=== PATIENT | male | born 1995 | race Hispanic/Latino ===

== ENCOUNTER 2016-11-21 12:56 | Emergency (ER) | payer SELFPAY ==
[2016-11-21] MEDS ORDERED: Ketorolac Tromethamine 60 MG/2 ML VIAL ONE (13:42)
== END 2016-11-21 14:00 | disposition home or self-care (01) ==
LOC: ERS 12:56
DX: S39.011A Strain of muscle, fascia and tendon of abdomen, initial encounter (principal); X50.0XXA Overexertion from strenuous movement or load, initial encounter; Y99.0 Civilian activity done for income or pay
CPT/HCPCS: 96372; J1885

== ENCOUNTER 2017-01-26 14:59 | Emergency (ER) | payer SELFPAY | END 2017-01-26 16:15 | disposition home or self-care (01) | LOC: ERS 14:59 | DX: L03.115 Cellulitis of right lower limb (principal) | CPT/HCPCS: 99283 ==

== ENCOUNTER 2017-01-28 11:36 | Inpatient (IN) | payer SELFPAY ==
[2017-01-28 12:35] LABS: #Eosinphils 0.2 thou/uL (0.0-0.7); #Lymphocytes 1.8 thou/uL (1.20-3.40); #Monocytes 0.7 thou/uL (0.11-0.59); %Basophils 0.4 % (0.0-1.0); %Eosinophils 2.3 % (0.0-10.0); %Lymphocytes 18.2 % (28.0-48.0); %Monocytes 7.3 % (0.0-4.0); Hematocrit 44.5 % (42.0-52.0); Mean Platelet Volume 7.4 fL (7.4-10.4); White Blood Cell (WBC) Count 9.7 thou/uL (4.8-10.8)
[2017-01-28 12:46] LABS: ALT (SGPT) 11 U/L (8-55); AST (SGOT) 18 U/L (5-34); Alkaline Phosphatase 123 U/L (Less than 750); Anion Gap 12 mmol/L (10-20); BUN (Urea Nitrogen) 15 mg/dL (8.9-20.6); Bilirubin, Total 0.7 mg/dL (0.2-1.2); Calc. Creatinine Clearance 0 mL/min (70-130); Calcium 9.9 mg/dL (7.8-10.44); Carbon Dioxide 28 mmol/L (22-29); Chloride 103 mmol/L (98-107); Estimated GFR-MDRD 88; Globulin 4.1 g/dL (2.4-3.5); Protein, Total 8.8 g/dL (6.0-8.3)
--- NOTE | 2017-01-28 13:31 | ULT ---
VENOUS DOPPLER ULTRASOUND OF THE RIGHT LOWER EXTREMITY: Date: 01/28/17 HISTORY: Right lower extremity pain, redness, edema, cellulitis. TECHNIQUE: Perez scale ultrasound with color flow and spectral Doppler imaging of the deep venous systems of the right lower extremity is performed. FINDINGS: There is good flow, compression, and augmentation noted in the right common femoral, femoral, deep fe moral, popliteal, posterior tibial, and greater saphenous veins. There is an enlarged lymph node in t he right groin, measuring 4.2 x 1.4 x 3.8 cm. IMPRESSION: No evidence of deep venous thrombosis in the right lower extremity. POS: [facility]
[2017-01-28] MEDS ORDERED: Morphine 4 MG/ML VIAL ONE (14:56)
[2017-01-28] MEDS ORDERED: Ondansetron HCl/PF 4 MG/2 ML Vial ONE (14:56)
[2017-01-28] MEDS ORDERED: Piperacillin/Tazobactam 4.5 GM in Sodium Chloride 0.9% 100 ML IVPB SCH (15:15)
--- NOTE | 2017-01-28 16:06 | PDOC.EVN ---
Attending Addendum - Attending Addendum I personally evaluated the patient and discussed the management with Dr. Cross/ Jesika. I agree with the History, Examination, Assessment and Plan documented in her H& P with any addition or exceptions noted below. Patient with couple week history of increasing redness and pain in the RLE admitted for cellulitis. He was seen in ER 2 days ago and given Keflex and Bactrim, but patient admits he did not have those medications filled. He has noted that the redness and pain have gotten worse, mostly since Friday. He has noted no drainage, fevers, chills, nausea, vomiting, similar symptoms in other body regions. He reports a 1 month history of a "knot" just inferior to his groin that is non painful. He has erythema and induration on exam of the RLE , but no evidence for fluctuance or abscess formation. U/S negative for DVT. He has nontender R sided femoral adenopathy, likely 2/2 infection. He will be admitted for IV abx, Vanc and Zosyn initially. Obtain blood cultures. Will nadine areas of erythema to ensure it is improving with therapy. Symptomatic meds as needed.
[2017-01-28] MEDS ORDERED: Calcium Carbonate 500 MG ChewTAB PO PRN (17:28)
[2017-01-28] MEDS ORDERED: Ondansetron ODT 4 MG TAB PO PRN (17:28)
[2017-01-28] MEDS ORDERED: Acetaminophen 325 MG TAB PO PRN (17:28)
[2017-01-28] MEDS ORDERED: Ondansetron HCl/PF 4 MG/2 ML Vial IVP PRN (17:28)
[2017-01-28 17:29] VITALS: BMI 23.9
[2017-01-28] MEDS: Piperacillin/Tazobactam 3.375 GM in Sodium Chloride 0.9% 100 ML IVPB SCH (20:41)
--- NOTE | 2017-01-28 22:11 | HP-2 ---
DATE OF ADMISSION: 01/28/2017 CODE STATUS: FULL. PRIMARY CARE PHYSICIAN: None. ATTENDING: Melvin Hodges MD RESIDENT: Liz Cross MD HISTORIAN: Self. CHIEF COMPLAINT: Right leg redness and swelling. HISTORY OF PRESENT ILLNESS: This is a 21-year-old male who was in the emergency room 2 days ago and was diagnosed with cellulitis of his right leg and was discharged on Bactrim and Keflex. 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 He is back f or reevaluation. He started having a lump in his upper right thigh about 1 month ago. He reports th at the lump will grow and shrink in size and it is tender especially when it is large in size. He al so started getting a rash in his right foot that he was told was acne foot. He then developed pain a nd redness in his right thigh about a week ago that spread to his right calf and guerrier, it is tender t o touch. He does not have any fevers. Denies dysuria. No other rashes or lumps anywhere else. In the ER, he was given vancomycin and Zosyn. PAST MEDICAL HISTORY: None. PAST SURGICAL HISTORY: None. ALLERGIES: No known drug allergies. MEDICATIONS: None. FAMILY HISTORY: None. SOCIA L HISTORY: Denies tobacco, alcohol, or drug use. Works as a construction manufacturing planner. REVIEW OF SYSTEMS: General: Denies fever, chills, or weight changes. Eyes: Denies vision changes. ENT: Denies nasal congestion, rhinorrhea, or sore throat. Respiratory: Denies cough or shortness of breath. Cardiovascular: Denies chest pain or edema. Gastrointestinal: Denies nausea, vomiting , diarrhea, or abdominal pain. Genitourinary: Denies dysuria or polyuria. Skin: Positive for rash and lesions. Musculoskeletal: Positive for pain and tenderness. Neurologic: Negative for weaknes s or numbness. PHYSICAL EXAMINATION: VITAL SIGNS: Blood pressure 133/75, pulse 104, respiratory rate 15, temperature 99.1, pulse ox 99% o n room air, current weight 92.57 kilograms. GENERAL: Alert, oriented x3, in no acute distress, well-nourished, appropriately interactive. EYES: Pupils equal, round, reactive to light. Extraocular muscles intact. Conjunctivae within norm al limits. ENT: Nasal mucosa and oropharynx within normal limits. NECK: Supple. No lymphadenopathy. CARDIOVASCULAR: Regular rate and rhythm. No murmurs or gallops. 2+ radial and pedal pulses. RESPIRATORY: Normal effort, no retractions, clear to auscultation bilaterally. SKIN: Warm and dry. No cyanosis. Erythematous lesion on the right medial thigh with warmth, erythe matous lesion on the calf as well as two lesions on the guerrier, right foot and scaly and ulcerative les ions that were not tender upper thigh tender, mobile lymphadenopathy. ABDOMEN: Soft, nontender to palpation. Normoactive bowel sounds. No mass or distention. EXTREMITIES: No cyanosis or edema. MUSCULOSKELETAL: Structure, tone within normal limits. 5/5 muscle strength. Full range of motion. NEUROLOGIC: No focal deficits. Sensation within normal limits. PSYCHIATRIC: Appropriate. LABORATORY DATA: WBC 9.7, hemoglobin 14.6, hematocrit 44.5, platelets 319, sodium 139, potassium 3.7 , chloride 103, CO2 of 28, BUN 15, creatinine 1.07, GFR 88, glucose 85, calcium 9.9, total protein 8. 8, albumin 4.7, alkaline phosphatase 123, total bilirubin 0.7, AST 18, ALT 11. ESR 35. CRP 2.61. V ascular ultrasound showed no evidence of DVT, there are enlarged lymph nodes in right groin. ASSESSMENT AND PLAN: This is a 21-year-old male who presents with: 1. Cellulitis. Patient never received p.o. antibiotics. We will treat with vancomycin and Zosyn fo r approximately 2 days and then likely switch to p.o. antibiotics. We will get blood cultures, no co ncern for abscess at this time. 2. Tinea pedis. We used terbinafine cream. The patient will likely need a good outpatient follow u p as this will take time to resolve. 3. Elevated erythrocyte sedimentation rate, likely secondary to cellulitis. No signs of osteo. If patient does not improve, we will consider getting x-ray. 4. Venous thromboembolism prophylaxis, sequential compression devices. DISPOSITION: Admit to medical. Symptomatic medication will be provided. History and physical exam as well as management discussed with Dr. Hodges.
[2017-01-28] MEDS: Vancomycin HCl 1 GM in Premix Bag 1 BAG IVPB SCH (23:33)
[2017-01-29] MEDS: Piperacillin/Tazobactam 3.375 GM in Sodium Chloride 0.9% 100 ML IVPB SCH ×4 (03:15→20:19)
[2017-01-29 05:51] LABS: #Eosinphils 0.3 thou/uL (0.0-0.7); #Lymphocytes 1.6 thou/uL (1.20-3.40); #Monocytes 0.7 thou/uL (0.11-0.59); #Neutrophils 6.8 thou/uL (1.40-6.50); %Basophils 0.5 % (0.0-1.0); %Eosinophils 2.8 % (0.0-10.0); %Lymphocytes 16.6 % (21.0-51.0); %Monocytes 7.9 % (0.0-10.0); Hematocrit 44.5 % (42.0-52.0); Mean Platelet Volume 7.5 fL (7.4-10.4); Red Blood Cell (RBC) Count 5.03 mill/uL (4.70-6.10); White Blood Cell (WBC) Count 9.4 thou/uL (4.8-10.8)
[2017-01-29 06:17] LABS: Anion Gap 14 mmol/L (10-20); BUN (Urea Nitrogen) 13 mg/dL (8.9-20.6); Calc. Creatinine Clearance 118 mL/min (70-130); Calcium 10.2 mg/dL (7.8-10.44); Carbon Dioxide 21 mmol/L (22-29); Chloride 108 mmol/L (98-107); Estimated GFR-MDRD Greater than 90
[2017-01-29] MEDS ORDERED: Acetaminophen/Codeine 30-300mg Tablet PO PRN (07:38)
--- NOTE | 2017-01-29 07:41 | PDOC.FM ---
- Subjective Subjective: Patient doing well this morning however notes that the pain in his right calf is not better. The redness has improved though. He is unable to describe the pain but states it is difficult to walk and pressing on the area creates pain. - Objective MAR Reviewed: Yes Vital Signs & Weight: Vital Signs (12 hours) Temp Pulse Resp BP Pulse Ox 01/28/17 23:00 98.0 F 78 20 98 01/28/17 20:00 98.0 F 78 20 122/73 98 I&O: 01/28/17 01/29/17 01/30/17 06:59 06:59 06:59 Intake Total 450 Balance 450 Result Diagrams: 01/29/17 05:04 01/29/17 05:04 <Liz Canchola - Last Filed: 01/29/17 07:40> - Objective Vital Signs & Weight: Vital Signs (12 hours) Temp Pulse Resp BP Pulse Ox 01/29/17 07:48 98.1 F 65 16 128/81 100 I&O: 01/28/17 01/29/17 01/30/17 06:59 06:59 06:59 Intake Total 450 Balance 450 Result Diagrams: 01/29/17 05:04 01/29/17 05:04 <Amado Thompson - Last Filed: 01/29/17 11:32> Phys Exam - Physical Examination Constitutional: NAD Respiratory: no wheezing, no rales, no rhonchi, clear to auscultation bilateral Cardiovascular: RRR, no significant murmur Gastrointestinal: soft, non-tender Musculoskeletal: no edema skin: light red patch on right inner thigh and calf improved from before. Neurological: non-focal, normal sensation, moves all 4 limbs Deviation from normal: areas of hypopigmentation and well demarcated raised patches along lat foot -: scabbed over lesions within patches randomly placed <Liz Canchola - Last Filed: 01/29/17 07:40> Dx/Plan (1) Cellulitis of leg, right Code(s): L03.115 - CELLULITIS OF RIGHT LOWER LIMB Status: Acute Plan: cont vanc and zosyn. trial of tylenol #3 for pain, expect improvement with cont abx. DVT r/o from ER. warmth and redness improving. (2) Tinea pedis of both feet Code(s): B35.3 - TINEA PEDIS Status: Acute Plan: cont terbinafine. Likely source of cellulitis. <Liz Canchola - Last Filed: 01/29/17 07:40> Attending Addendum - Attending Addendum I personally evaluated the patient and discussed the management with Dr. Canchola. I agree with the History, Examination, Assessment and Plan documented above with any addition or exceptions noted below. I note that his areas of tenderness and erytheam on right leg have underlying tender swollen lymph nodes. His presentation is consistent with tenia pedis, with acute lymphadenitis and cellulitis. he is beginning to ambulate but has significant tenderness. Add oral antifungal. Discharge expected tomorrow. <Amado Thompson - Last Filed: 01/29/17 11:32>
[2017-01-29] MEDS ORDERED: FLU VACC QS2017-18 36 mo. & older 0.5 ML SYRINGE IM ONE (09:00)
[2017-01-29] MEDS: Vancomycin HCl 1 GM in Premix Bag 1 BAG IVPB SCH ×3 (09:34→23:16)
[2017-01-29] MEDS ORDERED: Morphine 4 MG/ML VIAL SLOW IVP SCH (15:30)
[2017-01-29 16:12] LABS: Vancomycin, Trough 18.2 ug/mL
[2017-01-29] MEDS: HYDROcodone/Acetaminophen 5/325 mg Tablet PO PRN (20:24)
[2017-01-30] MEDS: Piperacillin/Tazobactam 3.375 GM in Sodium Chloride 0.9% 100 ML IVPB SCH ×4 (02:28→21:37)
[2017-01-30 05:34] LABS: #Eosinphils 0.3 thou/uL (0.0-0.7); #Lymphocytes 1.5 thou/uL (1.20-3.40); #Monocytes 0.4 thou/uL (0.11-0.59); #Neutrophils 4.3 thou/uL (1.40-6.50); %Basophils 0.1 % (0.0-1.0); %Lymphocytes 23.1 % (21.0-51.0); %Monocytes 6.6 % (0.0-10.0); Hematocrit 41.9 % (42.0-52.0); Mean Platelet Volume 7.3 fL (7.4-10.4); Red Blood Cell (RBC) Count 4.76 mill/uL (4.70-6.10); White Blood Cell (WBC) Count 6.4 thou/uL (4.8-10.8)
[2017-01-30 06:03] LABS: Anion Gap 13 mmol/L (10-20); BUN (Urea Nitrogen) 11 mg/dL (8.9-20.6); Calc. Creatinine Clearance 101 mL/min (70-130); Calcium 9.7 mg/dL (7.8-10.44); Carbon Dioxide 26 mmol/L (22-29); Chloride 105 mmol/L (98-107); Estimated GFR-MDRD 82
--- NOTE | 2017-01-30 09:07 | PDOC.FM ---
- Subjective Subjective: Patient unable to bear weight on right leg due to pain. States yesterday he fell 2/2 pain in calf and felt a pop in his calf. Reports some improvement with pain meds but still unable to bear weight. Feels significant pain if pressure applied to calf. No other complaints. - Objective MAR Reviewed: Yes Vital Signs & Weight: Weight Admit Weight 69.309 kg Weight 69.309 kg I&O: 01/29/17 01/30/17 01/31/17 06:59 06:59 06:59 Intake Total 450 400 Balance 450 400 Result Diagrams: 01/30/17 05:00 01/30/17 05:00 <Liz Canchola - Last Filed: 01/30/17 09:06> - Objective Vital Signs & Weight: Vital Signs (12 hours) Temp Pulse Resp BP Pulse Ox 01/30/17 08:00 98.4 F 79 18 117/68 97 Weight Admit Weight 69.309 kg Weight 69.309 kg I&O: 01/29/17 01/30/17 01/31/17 06:59 06:59 06:59 Intake Total 450 400 Balance 450 400 Result Diagrams: 01/30/17 05:00 01/30/17 05:00 <Tess Stuart - Last Filed: 01/30/17 19:14> Phys Exam - Physical Examination Constitutional: NAD Respiratory: no wheezing, no rales, no rhonchi, clear to auscultation bilateral Cardiovascular: RRR, no significant murmur Gastrointestinal: soft, non-tender suspected tenderness of tendon upon dorsiflexion of right foot multiple tender lymph node along interior of right leg. Deviation from normal: persistent fungal rash on lucretia feet. improvement of erythematous patches <Liz Canchola - Last Filed: 01/30/17 09:06> Dx/Plan (1) Cellulitis of leg, right Code(s): L03.115 - CELLULITIS OF RIGHT LOWER LIMB Status: Acute Plan: Day 3 of vanc/zosyn with improvement of cellulitis however pain unchanged and possibly worse. Will order MRI of RLE for suspected tendon involvement. (2) Tinea pedis of both feet Code(s): B35.3 - TINEA PEDIS Status: Chronic Plan: cont oral and cream terbinafine. (3) Lymphadenitis, acute Code(s): L04.9 - ACUTE LYMPHADENITIS, UNSPECIFIED Status: Acute <Liz Canchola - Last Filed: 01/30/17 09:06> Attending Addendum - Attending Addendum I personally evaluated the patient and discussed the management with Dr. Canchola at 945am. I agree with the History, Examination, Assessment and Plan documented above with any addition or exceptions noted below. R lower leg cellulitis and lymphadenitis- on vanc and zosyn. Persistent pain so MRI ordered showing subq edema without tendon/muscle/fascial involvement. Ambulation ad lang with goal of home tomorrow on po antibiotics. <Tess Stuart - Last Filed: 01/30/17 19:14>
[2017-01-30] MEDS: Vancomycin HCl 1 GM in Premix Bag 1 BAG IVPB SCH ×3 (10:30→23:38)
--- NOTE | 2017-01-30 13:20 | MRI ---
MRI OF RIGHT TIBIA AND FIBULA PERFORMED WITHOUT CONTRAST ENHANCEMENT: Date; 01/30/17 HISTORY: Pain, redness, and edema. Patient felt a pop in calf after falling due to pain yesterday. FINDINGS: Motion artifact does degrade detail on this examination. In the area of patient's pain, there is a marker placed. There are edema changes which are confined t o the superficial subcutaneous fat along the more posterior and more medial side of the calf. I do no t see any evidence of any underlying muscle strain. No evidence for any type of compartment syndrome. The marrow signal change in the visualized portions of the tibia and fibula are noted. IMPRESSION: Superficial edema changes as discussed above. POS: [facility]
[2017-01-30] MEDS: HYDROcodone/Acetaminophen 5/325 mg Tablet PO PRN ×2 (17:36→22:21)
[2017-01-31] MEDS: Piperacillin/Tazobactam 3.375 GM in Sodium Chloride 0.9% 100 ML IVPB SCH ×3 (03:29→15:07)
[2017-01-31 05:48] LABS: #Eosinphils 0.3 thou/uL (0.0-0.7); #Lymphocytes 1.4 thou/uL (1.20-3.40); #Monocytes 0.5 thou/uL (0.11-0.59); #Neutrophils 3.5 thou/uL (1.40-6.50); %Basophils 0.7 % (0.0-1.0); %Eosinophils 5.8 % (0.0-10.0); %Lymphocytes 24.6 % (21.0-51.0); %Monocytes 8.3 % (0.0-10.0); Hematocrit 39.5 % (42.0-52.0); Mean Platelet Volume 7.2 fL (7.4-10.4); Red Blood Cell (RBC) Count 4.51 mill/uL (4.70-6.10); White Blood Cell (WBC) Count 5.7 thou/uL (4.8-10.8)
[2017-01-31 06:21] LABS: Anion Gap 11 mmol/L (10-20); BUN (Urea Nitrogen) 10 mg/dL (8.9-20.6); Calc. Creatinine Clearance 110 mL/min (70-130); Calcium 9.8 mg/dL (7.8-10.44); Carbon Dioxide 25 mmol/L (22-29); Chloride 106 mmol/L (98-107); Estimated GFR-MDRD 90
[2017-01-31] MEDS: Vancomycin HCl 1 GM in Premix Bag 1 BAG IVPB SCH ×2 (08:04→16:20)
--- NOTE | 2017-01-31 09:39 | PDOC.FM ---
- Subjective Subjective: Patient still reports pain, reports another pop in his leg. Can bear some weight with pain. Patient reports no other symptoms. - Objective MAR Reviewed: Yes Vital Signs & Weight: Vital Signs (12 hours) Temp Pulse Resp BP Pulse Ox 01/31/17 08:00 98.2 F 58 L 20 129/80 97 Weight Admit Weight 69.309 kg Weight 69.309 kg I&O: 01/30/17 01/31/17 02/01/17 06:59 06:59 06:59 Intake Total 400 450 Balance 400 450 Result Diagrams: 01/31/17 05:23 01/31/17 05:23 Radiology: MRI- no acute process in RLE <Liz Canchola - Last Filed: 01/31/17 09:37> - Objective Vital Signs & Weight: Vital Signs (12 hours) Temp Pulse Resp BP Pulse Ox 01/31/17 16:08 97.6 F 77 18 104/55 L 98 01/31/17 08:00 98.2 F 58 L 20 129/80 97 Weight Admit Weight 69.309 kg Weight 69.309 kg I&O: 01/30/17 01/31/17 02/01/17 06:59 06:59 06:59 Intake Total 400 450 Balance 400 450 Result Diagrams: 01/31/17 05:23 01/31/17 05:23 <Tess Stuart - Last Filed: 01/31/17 19:26> Phys Exam - Physical Examination Constitutional: NAD Respiratory: no wheezing, no rales, no rhonchi, clear to auscultation bilateral Cardiovascular: RRR, no significant murmur Gastrointestinal: soft, non-tender Musculoskeletal: no edema tender along likely cord of lymph nodes vs tendon in calf. tender lymph in inner thigh Psychiatric: normal affect Deviation from normal: erythema improved. <Liz Canchola - Last Filed: 01/31/17 09:37> Dx/Plan (1) Cellulitis of leg, right Code(s): L03.115 - CELLULITIS OF RIGHT LOWER LIMB Status: Acute Plan: No acute process except inflammation on MRI. Recommend NSAIDs for pain. Patient to be transitioned to oral bactrim as this is cheapest option since he has no insurance. (2) Tinea pedis of both feet Code(s): B35.3 - TINEA PEDIS Status: Chronic Plan: cont oral and cream terbinafine. Script to be sent. (3) Lymphadenitis, acute Code(s): L04.9 - ACUTE LYMPHADENITIS, UNSPECIFIED Status: Acute (4) Leg pain, right Code(s): M79.604 - PAIN IN RIGHT LEG Status: Acute Plan: suspect this is 2/2 to inflammation. Stressed importance of follow up next week. Pt to be evaluated by PT and likely home later today. MRI revealed no concerns for abscess or tenosynivitis. <Liz Canchola - Last Filed: 01/31/17 09:37> Attending Addendum - Attending Addendum I personally evaluated the patient and discussed the management with Dr. Canchola at 0840 I agree with the History, Examination, Assessment and Plan documented above with any addition or exceptions noted below. Cellulitis and lymphadenits- stable for d/c home on Bactrim with close o/p follow-up <Tess Stuart - Last Filed: 01/31/17 19:26>
[2017-01-31 16:12] VITALS: BP 104/55; TEMP 97.6
== END 2017-01-31 17:05 | disposition home or self-care (01) | DRG 603 ==
LOC: ERS 11:36 → T4-B 17:08
PROVIDERS: ADMIT Student in an Organized Health Care Education/Training Program; ATTEND Student in an Organized Health Care Education/Training Program
DX: L03.115 Cellulitis of right lower limb (principal); B35.3 Tinea pedis; L04.9 Acute lymphadenitis, unspecified
CPT/HCPCS: 36415; 80048; 80053; 80202; 85025; 85652; 86140; 87040; 90471; 90682; 96365; 96367; 96375; A4216; G0008; G8978-GP-CI; G8979-GP-CI; G8980-GP-CI; J2270; J2405; J2543; J3370; J7050; Q2036

== ENCOUNTER 2018-04-23 03:47 | Emergency (ER) | payer SELFPAY ==
[2018-04-23] MEDS ORDERED: Ondansetron ODT 4 MG TAB ONE (03:59)
[2018-04-23 04:33] LABS: #Lymphocytes 1.2 thou/uL (1.20-3.40); #Monocytes 0.4 thou/uL (0.11-0.59); #Neutrophils 9.9 thou/uL (1.40-6.50); %Basophils 0.3 % (0.0-1.0); %Eosinophils 0.2 % (0.0-10.0); %Lymphocytes 10.3 % (21.0-51.0); %Monocytes 3.3 % (0.0-10.0); %Neutrophils 85.9 % (42.0-75.0); Hemoglobin 15.8 g/dL (14.0-18.0); Mean Corpuscular HGB CONC 33.8 g/dL (32.0-36.0); Mean Corpuscular Hemoglobin 29.2 pg (27.0-31.0); Mean Corpuscular Volume 86.2 fL (78.0-98.0); Mean Platelet Volume 7.8 fL (7.4-10.4); Platelet Count 263 thou/uL (130-400); RBC Distribution Width 11.5 % (11.5-14.5); Red Blood Cell (RBC) Count 5.43 mill/uL (4.70-6.10); White Blood Cell (WBC) Count 11.5 thou/uL (4.8-10.8)
[2018-04-23] MEDS ORDERED: Dicyclomine 20 MG TAB ONE (04:38)
[2018-04-23] MEDS ORDERED: Metoclopramide HCl 10 MG/2 ML VIAL ONE (04:38)
[2018-04-23] MEDS ORDERED: diphenhydrAMINE 50 MG/ML VIAL ONE (04:38)
[2018-04-23] MEDS ORDERED: Pantoprazole 40 MG VIAL ONE (04:38)
[2018-04-23 04:51] LABS: ALT (SGPT) 22 U/L (8-55); AST (SGOT) 22 U/L (5-34); Albumin 5.3 g/dL (3.5-5.0); Alkaline Phosphatase 111 U/L (40-150); Anion Gap 17 mmol/L (10-20); BUN (Urea Nitrogen) 11 mg/dL (8.9-20.6); Bilirubin, Total 0.7 mg/dL (0.2-1.2); Calc. Creatinine Clearance 0 mL/min (70-130); Calcium 10.5 mg/dL (7.8-10.44); Carbon Dioxide 24 mmol/L (22-29); Chloride 103 mmol/L (98-107); Estimated GFR-MDRD Greater than 90; Globulin 3.2 g/dL (2.4-3.5); Glucose 98 mg/dL (70-105); Potassium 3.3 mmol/L (3.5-5.1); Protein, Total 8.5 g/dL (6.0-8.3); Sodium 141 mmol/L (136-145)
[2018-04-23 05:24] LABS: Amphetamine Not Detected (NotDetected); Barbiturates Screen Not Detected (NotDetected); Benzodiazepine Screen Not Detected (NotDetected); Cocaine Metabolite Screen Not Detected (NotDetected); Medtox Control Line Valid? VALID (VALID); Medtox Reader # READER 1; Methadone Not Detected (NotDetected); Methamphetamine Not Detected (NotDetected); Opiate Screen Not Detected (NotDetected); Oxycodone Screen Not Detected (NotDetected); Phencyclidine (PCP) Not Detected (NotDetected); THC/Cannabinoid Screen Detected (NotDetected); Tricyclic Screen Not Detected (NotDetected)
[2018-04-23 05:44] LABS: Acetaminophen Less than 6.0 mcg/mL (10.0-30.0); Alcohol Less than 10 mg/dL (Less than 10); Salicylate Less than 8.0 mg/dL (15.0-30.0)
[2018-04-23] MEDS ORDERED: Lidocaine Viscous Sol 2% 15 ml UD Cup ONE (05:58)
[2018-04-23] MEDS ORDERED: Mag-Al 1200 mg/1200 mg/30 ML UDCUP ONE (05:58)
--- NOTE | 2018-04-25 17:06 | EKG ---
Test Reason : Blood Pressure : / mmHG Vent. Rate : 078 BPM Atrial Rate : 078 BPM P-R Int : 114 ms QRS Dur : 090 ms QT Int : 370 ms P-R-T Axes : 003 076 030 degrees QTc Int : 421 ms Normal sinus rhythm Normal ECG Confirmed by ANKIT RAJAN ([id number]), fashion editor BONITA MONTOYA ([id number]) on 04/25/2018 5:06:29 PM Referred By: Confirmed By:ANKIT RAJAN
== END 2018-04-23 06:39 | disposition home or self-care (01) ==
LOC: ERS 03:47
DX: R11.2 Nausea with vomiting, unspecified (principal); R10.9 Unspecified abdominal pain
CPT/HCPCS: 80053; 80306; 80307; 82550; 85025; 93005; 96361; 96374; 96375; C9113; J1200; J2765; Q0162

== ENCOUNTER 2019-01-28 12:22 | Emergency (ER) | payer SELFPAY ==
[2019-01-28] MEDS ORDERED: Ketorolac Tromethamine 30 MG/ML VIAL ONE (13:09)
--- NOTE | 2019-01-28 13:23 | RAD ---
XR Knee Rt 4 View STANDARD HISTORY: Right knee pain FINDINGS: No fracture or dislocation is identified. No bony destruction or periosteal reaction is seen. No join t effusion is identified.
--- NOTE | 2019-01-28 13:39 | ULT ---
ULTRASOUND DOPPLER DUPLEX VENOUS RIGHT LOWER EXTREMITY: DATE: 01/28/2019 HISTORY: 23-year-old male with right lower extremity pain TECHNIQUE: Grayscale, color-flow, and spectral analysis, of major veins of right lower extremity. FINDINGS: There is demonstration of blood flow with normal compressibility, of the right common femoral, profun da femoral, greater saphenous, femoral, popliteal, and posterior tibial, veins. IMPRESSION: Negative. No deep venous thrombosis of right lower extremity.
== END 2019-01-28 14:15 | disposition home or self-care (01) ==
LOC: ERS 12:22
DX: L03.115 Cellulitis of right lower limb (principal)
CPT/HCPCS: 96372; J1885

== ENCOUNTER 2019-02-28 04:16 | Inpatient (IN) | payer SELFPAY ==
[2019-02-28] MEDS ORDERED: Morphine 4 MG/ML VIAL ONE (04:50)
[2019-02-28] MEDS ORDERED: Piperacillin/Tazobactam 4.5 GM VIAL ONE (04:51)
[2019-02-28] MEDS ORDERED: Ondansetron PF 4 MG/2 ML Vial ONE (04:51)
[2019-02-28 04:58] LABS: #Eosinphils 0.1 thou/uL (0.0-0.7); #Lymphocytes 0.8 thou/uL (1.20-3.40); #Monocytes 0.8 thou/uL (0.11-0.59); #Neutrophils 9.3 thou/uL (1.40-6.50); %Basophils 0.2 % (0.0-1.0); %Eosinophils 0.6 % (0.0-10.0); %Lymphocytes 6.9 % (21.0-51.0); %Monocytes 7.5 % (0.0-10.0); %Neutrophils 84.8 % (42.0-75.0); Hemoglobin 14.6 g/dL (14.0-18.0); Mean Corpuscular HGB CONC 33.2 g/dL (32.0-36.0); Mean Corpuscular Hemoglobin 28.2 pg (27.0-31.0); Mean Corpuscular Volume 85.2 fL (78.0-98.0); Mean Platelet Volume 8.1 fL (7.4-10.4); Platelet Count 223 thou/uL (130-400); RBC Distribution Width 11.7 % (11.5-14.5); Red Blood Cell (RBC) Count 5.19 mill/uL (4.70-6.10)
[2019-02-28] MEDS ORDERED: Ketorolac Tromethamine 30 MG/ML VIAL ONE (05:02)
[2019-02-28 05:05] LABS: ALT (SGPT) 15 U/L (8-55); AST (SGOT) 27 U/L (5-34); Albumin 5.2 g/dL (3.5-5.0); Alkaline Phosphatase 130 U/L (40-110); Anion Gap 20 mmol/L (10-20); BUN (Urea Nitrogen) 14 mg/dL (8.9-20.6); Bilirubin, Total 0.6 mg/dL (0.2-1.2); Calc. Creatinine Clearance 0 mL/min (70-130); Carbon Dioxide 20 mmol/L (22-29); Chloride 103 mmol/L (98-107); Estimated GFR-MDRD 76; Globulin 3.3 g/dL (2.4-3.5); Glucose 97 mg/dL (70-105); Potassium 3.5 mmol/L (3.5-5.1); Protein, Total 8.5 g/dL (6.0-8.3); Sodium 139 mmol/L (136-145)
[2019-02-28] MEDS ORDERED: Sodium Chloride 0.9% 1,000 ML IV SCH (06:40)
[2019-02-28] MEDS ORDERED: Acetaminophen 325 MG TAB PO PRN (06:40)
[2019-02-28 07:06] VITALS: BMI 25.0
[2019-02-28] MEDS ORDERED: Loratadine 10 MG TAB PO PRN (07:59)
[2019-02-28] MEDS ORDERED: Diabetic Tussin 200 MG/10 ML UDCUP PO PRN (07:59)
[2019-02-28] MEDS ORDERED: Sodium Chloride 0.65% Nasal 44 ML BOT EA NARE PRN (07:59)
[2019-02-28] MEDS ORDERED: Bisacodyl 10 MG SUPP PR PRN (07:59)
[2019-02-28] MEDS ORDERED: Calcium Carbonate 500 MG ChewTAB PO PRN (07:59)
[2019-02-28] MEDS ORDERED: Zolpidem Tartrate 5 MG TAB PO PRN (07:59)
[2019-02-28] MEDS ORDERED: Loperamide HCl 2 MG CAP PO PRN (07:59)
[2019-02-28] MEDS ORDERED: hydrALAZINE 20 MG/ML VIAL SLOW IVP PRN (07:59)
[2019-02-28] MEDS ORDERED: Ondansetron PF 4 MG/2 ML Vial IVP PRN ×2 (07:59→11:00)
[2019-02-28] MEDS ORDERED: Cepastat Lozenges 1 LOZ PO PRN (07:59)
[2019-02-28] MEDS ORDERED: Senokot S 8.6-50 MG TAB PO PRN (07:59)
[2019-02-28] MEDS: Acetaminophen 325 MG TAB PO PRN ×3 (08:06→18:29)
[2019-02-28] MEDS: Sodium Chloride 0.9% 1,000 ML IV SCH ×3 (08:07→20:07)
--- NOTE | 2019-02-28 08:42 | CT ---
PRELIMINARY REPORT/[facility]/AFTER HOURS PROCEDURE CT ABDOMEN AND PELVIS WITH INTRAVENOUS CONTRAST: CLINICAL HISTORY: M24 presents to the ED with c/o fever, chills, RLQ pain, nausea and vomiting onset suddenly at 0000. Pt reports an area of erythema to right guerrier. Pt states he has experienced similar symptoms in the past with cellulitis. TECHNIQUE: Axial computed tomography images of the abdomen and pelvis with intravenous contrast. CONTRAST: With Isovue-[id number] mL. COMPARISON: None provided. FINDINGS: LUNG BASES: No basilar airspace consolidation or pleural effusion. LIVER: Unremarkable. GALLBLADDER AND BILE DUCTS: Unremarkable. No calcified stone. No ductal dilation. PANCREAS: Unremarkable. SPLEEN: Unremarkable. ADRENAL GLANDS: Unremarkable. KIDNEYS, URETERS, AND BLADDER: Unremarkable. No hydronephrosis or nephrolithiasis. No ureteral or yojana dder calculi. STOMACH AND BOWEL: No obstruction. No wall thickening. No CT evidence of colitis or acute diverticuli tis. APPENDIX: No CT evidence for appendicitis. PERITONEUM: No free fluid. No free air. LYMPH NODES: No lymphadenopathy. REPRODUCTIVE: Unremarkable as visualized. VASCULATURE: No aortic aneurysm. BONES: No fracture or suspicious osseous abnormality. ABDOMINAL WALL AND SOFT TISSUES: Unremarkable. IMPRESSION: No acute intra-abdominal or pelvic abnormality. ELECTRONICALLY SIGNED BY: Romario Whitaker M.D. Feb 28, 2019 5:28:00 AM FAMILY LAW ATTORNEY This report is intended for review by the ordering physician only, in accordance of law. If you recei ve this report in error, please call [facility] at [phone]. FINAL REPORT CT ABDOMEN AND PELVIS WITH IV CONTRAST: PROVIDED CLINICAL HISTORY: Abdominal pain. COMPARISON: None. FINDINGS/IMPRESSION: I agree with the preliminary interpretation given by [facility]. CODE QA Transcribed Date/Time: 02/28/2019 9:12 AM
--- NOTE | 2019-02-28 08:42 | RAD ---
EXAM: Portable chest PROVIDED CLINICAL HISTORY: Fever COMPARISON: 05/14/2015 FINDINGS: Cardiac and mediastinal silhouette is within normal limits. No focal consolidation, pleural fluid or pneumothorax evident. IMPRESSION: No evidence for an acute cardiopulmonary process.
[2019-02-28] MEDS: Ibuprofen 200 MG TAB PO PRN ×3 (09:48→18:29)
[2019-02-28] MEDS: Enoxaparin Sodium 40 MG/0.4 ML SYRINGE SC SCH (09:49)
[2019-02-28] MEDS: Famotidine 20 MG TAB PO SCH ×2 (09:49→20:07)
[2019-02-28] MEDS: cefTRIAXone\\ROCEPHIN 2 GM in Sodium Chloride 0.9% 100 ML IVPB SCH (10:02)
[2019-02-28] MEDS ORDERED: Ondansetron ODT 4 MG TAB SL PRN (11:00)
[2019-02-28] MEDS ORDERED: FLU VACC QS2019-20(6MOS UP)/PF 60 MCG/0.5 ML SYRINGE IM ONE (12:00)
[2019-02-28] MEDS: Vancomycin HCl 1 GM in Premix Bag 1 BAG IVPB SCH ×2 (12:53→20:07)
--- NOTE | 2019-02-28 13:46 | HP ---
PRIMARY CARE PHYSICIAN: [facility]. REASON FOR ADMISSION: Sepsis, cellulitis of right lower extremity, and abdominal pain. HISTORY OF PRESENT ILLNESS: A 24-year-old male with no significant past medical history, who initially came to emergency room with abdominal pain. The patient reports that last night after returning from [place] at his friend's home, he was started having nausea, vomiting, and crampy abdominal pain and he did not have any diarrhea. The patient was feeling chills and fever and subsequently, he was brought to emergency room for evaluation. The patient was also complaining of right lower extremity pain, swelling, and erythema for last couple of days. In the emergency room, as the patient was complaining of nausea, vomiting, and abdominal pain that is why CT abdomen and pelvis was done, which was unremarkable. The patient was found with fever with 100.7 and he was tachycardic as well as tachypneic and he was having significant chills and the patient was found with right lower extremity cellulitis. The patient reports that he has similar cellulitis several times in the past over right lower extremity. He denies any trauma. He denies any sick exposure. He denies any flu-like illness. He denies any melena or hematochezia or any vomiting of blood. He denies any unusual drug ingestion. REVIEW OF SYSTEMS: CONSTITUTIONAL: Negative for weight loss or gain, ability to conduct usual activities. SKIN: Negative for rash, itching. EYES: Negative for double vision, pain. ENT/MOUTH: Negative for nose bleeding, neck stiffness, pain, tenderness. CARDIOVASCULAR: Negative for palpitations, dyspnea on exertion, orthopnea. RESPIRATORY: Negative for shortness of breath, wheezing, cough, hemoptysis, fever or night sweats. GASTROINTESTINAL: Negative for poor appetite, abdominal pain, heartburn, nausea, vomiting, constipation, or diarrhea. GENITOURINARY: Negative for urgency, frequency, dysuria, nocturia. MUSCULOSKELETAL: Negative for pain, swelling. NEUROLOGIC/PSYCHIATRIC: Negative for anxiety, depression. ALLERGY/IMMUNOLOGIC: Negative for skin rash, bleeding tendency. Please see my HPI for pertinent positives and negatives. All other review of systems reviewed and negative except as mentioned in HPI. PAST MEDICAL HISTORY: Reviewed and negative. PAST SURGICAL HISTORY: Reviewed and negative. ALLERGIES: NO KNOWN DRUG ALLERGIES. CURRENT HOME MEDICATIONS: The patient is not taking any prescribed or non-prescribed medication. FAMILY HISTORY: No strong family history of premature coronary artery disease, stroke, or cancer. SOCIAL HISTORY: The patient drinks alcohol only occasionally. No smoking. No other illicit drug abuse. EMERGENCY ROOM COURSE: The patient has received vancomycin, Zosyn, morphine, Zofran, IV fluid, and Toradol. PHYSICAL EXAMINATION: VITAL SIGNS: On arrival; blood pressure 151/65, pulse 111, respiratory rate 36, temperature 100.7, and saturation 97% on room air. Weight 74 kg. GENERAL: The patient is currently alert and awake, no obvious acute distress. HEENT: Head, normocephalic and atraumatic. Eyes, pupils round and reactive to light. Extraocular muscle intact. ENT, oropharynx within normal limits. Moist mucous membranes. No oral lesion. No pharyngeal erythema. No exudate. NECK: Supple. No JVD. No meningeal signs of irritation. LUNGS: Clear to auscultation without any rhonchi or rales. CARDIAC: S1 and S2. Regular. Tachycardia. No murmur. No gallop. No rub. ABDOMEN: Soft, bowel sounds present, nontender, and nondistended. No organomegaly. No mass. EXTREMITIES: Right lower extremity warmth, erythema, and tenderness noted. Right groin has reactive lymph node tenderness noted. Left lower extremity within normal limit. NEUROLOGIC: Nonfocal examination. No meningeal signs of irritation. HEMATOLOGICAL SYSTEM: No other lymphadenopathy. SKIN: No skin rash other than cellulitis. SIGNIFICANT LABORATORY DATA: EKG showing sinus tachycardia. CT abdomen and pelvis, negative for any acute intraabdominal process. CBC; WBC 11.0, hemoglobin 14.6, and platelet 223. BMP; sodium 139, potassium 3.5, chloride 103, carbon dioxide 20, BUN 14, creatinine 1.19, glucose 97, and calcium 10.0. LFT; AST is 27, ALT 15, alkaline phosphatase 130, and albumin 5.2. ASSESSMENT: 1. Sepsis due to right lower extremity cellulitis. 2. Nausea, vomiting, abdominal pain, likely gastroenteritis, improving. PLAN: The patient will be admitted to the medical floor, the patient will be given empiric antibiotic therapy with vancomycin and Rocephin, follow up on culture result, advised to keep the right lower extremity elevated, continue IV fluid, DVT prophylaxis with Lovenox 40 mg subcu daily, GI prophylaxis with Pepcid 20 mg p.o. b.i.d., and symptomatic treatment will be given. Plan of care discussed with the patient and his father at bedside, we are expecting his stay in hospital more than 2 midnights. Plan of care discussed with them in detail. Job ID: [id number]
[2019-02-28] MEDS ORDERED: Iopamidol-370 76% 500 ML 1 ML ONE (16:03)
[2019-03-01 05:16] LABS: #Lymphocytes 0.6 thou/uL (1.20-3.40); #Monocytes 0.7 thou/uL (0.11-0.59); #Neutrophils 3.7 thou/uL (1.40-6.50); %Eosinophils 0.2 % (0.0-10.0); %Lymphocytes 12.5 % (21.0-51.0); %Monocytes 13.5 % (0.0-10.0); %Neutrophils 73.7 % (42.0-75.0); Hemoglobin 13.5 g/dL (14.0-18.0); Mean Corpuscular HGB CONC 34.6 g/dL (32.0-36.0); Mean Corpuscular Hemoglobin 30.4 pg (27.0-31.0); Mean Corpuscular Volume 87.7 fL (78.0-98.0); Mean Platelet Volume 8.3 fL (7.4-10.4); Platelet Count 143 thou/uL (130-400); RBC Distribution Width 11.8 % (11.5-14.5); Red Blood Cell (RBC) Count 4.44 mill/uL (4.70-6.10)
[2019-03-01 05:44] LABS: Anion Gap 13 mmol/L (10-20); BUN (Urea Nitrogen) 8 mg/dL (8.9-20.6); Calc. Creatinine Clearance 147 mL/min (70-130); Calcium 8.5 mg/dL (7.8-10.44); Carbon Dioxide 20 mmol/L (22-29); Chloride 110 mmol/L (98-107); Estimated GFR-MDRD Greater than 90; Glucose 86 mg/dL (70-105); Potassium 3.5 mmol/L (3.5-5.1); Sodium 139 mmol/L (136-145)
[2019-03-01] MEDS: Vancomycin HCl 1 GM in Premix Bag 1 BAG IVPB SCH (05:56)
[2019-03-01] MEDS ORDERED: Vancomycin HCl 1.25 GM in Sodium Chloride 0.9% 250 ML 250 ML IVPB SCH (06:00)
[2019-03-01] MEDS: Acetaminophen 325 MG TAB PO PRN (06:32)
[2019-03-01] MEDS ORDERED: Morphine 4 MG/ML VIAL ONE (06:49)
[2019-03-01] MEDS: Ondansetron ODT 4 MG TAB PO PRN ×2 (07:33→13:34)
[2019-03-01] MEDS: Enoxaparin Sodium 40 MG/0.4 ML SYRINGE SC SCH (08:26)
[2019-03-01] MEDS: Famotidine 20 MG TAB PO SCH ×2 (08:26→20:16)
[2019-03-01] MEDS: Sodium Chloride 0.9% 1,000 ML IV SCH (08:32)
[2019-03-01] MEDS: cefTRIAXone\\ROCEPHIN 2 GM in Sodium Chloride 0.9% 100 ML IVPB SCH (09:04)
--- NOTE | 2019-03-01 09:30 | ULT ---
ULTRASOUND DOPPLER DUPLEX VENOUS RIGHT LOWER EXTREMITY: DATE: 03/01/2019 HISTORY: Right lower extremity cellulitis, erythema, and edema in 24-year-old male TECHNIQUE: Grayscale, color-flow, and spectral analysis, of major veins of right lower extremity. FINDINGS: There is demonstration of blood flow with normal compressibility, of the right common femoral, profun da femoral, greater saphenous, femoral, popliteal, and posterior tibial, veins. Enlarged lymph node in right groin: 2.6 x 1 x 2.3 cm. IMPRESSION: No deep venous thrombosis of right lower extremity.
[2019-03-01] MEDS: HYDROcodone/Acetaminophen 5/325 mg Tablet PO PRN ×3 (09:40→23:51)
[2019-03-01] MEDS: Morphine 2 MG/ML SYRINGE SLOW IVP PRN ×2 (12:51→20:16)
--- NOTE | 2019-03-01 13:11 | PDOC.HOSPP ---
- Subjective Encounter Date: 03/01/19 Encounter Time: 09:00 Subjective: Patient seen and examined. No new complaints. No overnight events - Objective Vital Signs & Weight: Vital Signs (12 hours) Temp Temp Pulse Pulse Pulse Pulse Resp 03/01/19 12:02 98.6 F 81 22 H 03/01/19 11:25 98.9 F 84 18 03/01/19 08:00 03/01/19 07:30 03/01/19 06:58 99.6 F 128 H 118 H 104 H 03/01/19 06:55 03/01/19 03:57 98.7 F 92 20 Resp BP BP BP BP Pulse Ox Pulse Ox 03/01/19 12:02 127/76 97 03/01/19 11:25 138/77 98 03/01/19 08:00 100 03/01/19 07:30 127/77 03/01/19 06:58 26 H 155/80 H 157/106 H 161/86 H 99 03/01/19 06:55 149/83 H 03/01/19 03:57 121/65 95 Weight Weight 159 lb 11.2 oz I&O: 02/28/19 03/01/19 03/02/19 06:59 06:59 06:59 Intake Total 2220 Balance 2220 Result Diagrams: 03/01/19 04:30 03/01/19 04:30 Additional Labs: Accuchecks 03/01/19 06:45 POC Glucose 116 H Hospitalist ROS - Review of Systems Eyes: denies: pain, vision change, conjunctivae inflammation, eyelid inflammation, redness, other ENT: denies: ear pain, ear discharge, nose pain, nose discharge, nose congestion , mouth pain, mouth swelling, throat pain, throat swelling, other Respiratory: denies: cough, dry, shortness of breath, hemoptysis, SOB with excertion, pleuritic pain, sputum, wheezing, other Cardiovascular: denies: chest pain, palpitations, orthopnea, paroxysmal noc. dyspnea, edema, light headedness, other Gastrointestinal: denies: nausea, vomiting, abdominal pain, diarrhea, constipation, melena, hematochezia, other Genitourinary: denies: dysuria, frequency, incontinence, hematuria, retention, other Musculoskeletal: reports: leg pain. denies: neck pain, shoulder pain, arm pain , back pain, hand pain, foot pain, other - Medication Medications: Active Medications Generic Name Dose Route Start Last Admin Trade Name Freq PRN Reason Stop Dose Admin Acetaminophen 650 mg 02/28/19 07:59 03/01/19 06:32 Tylenol PO 650 mg Q4H PRN Administration Headache/Fever/Mild Pain (1-3) Hydrocodone Bitart/Acetaminophen 1 tab 02/28/19 07:59 03/01/19 09:40 [place] 5/325 PO 1 tab Q4H PRN Administration Moderate Pain (4-6) Enoxaparin Sodium 40 mg 02/28/19 09:00 03/01/19 08:26 Lovenox SC Not Given 0900 YEISON Famotidine 20 mg 02/28/19 09:00 03/01/19 08:26 Pepcid PO 20 mg BID YEISON Administration Ceftriaxone Sodium 2 gm/ 100 mls @ 200 mls/hr 02/28/19 10:00 03/01/19 09:04 Sodium Chloride IVPB 100 mls 1000 YEISON Administration Ibuprofen 400 mg 02/28/19 07:59 02/28/19 18:29 Motrin PO 400 mg Q4H PRN Administration Fever > 101 Morphine Sulfate 2 mg 03/01/19 08:27 03/01/19 12:51 Morphine SLOW IVP 2 mg Q2H PRN Administration Severe Pain (7-10) Ondansetron HCl 4 mg 02/28/19 07:59 03/01/19 07:33 Zofran Odt PO 4 mg Q6H PRN Administration Nausea/Vomiting Ondansetron HCl 4 mg 02/28/19 07:59 02/28/19 18:51 Zofran IVP 4 mg Q6H PRN Administration Nausea/Vomiting - Exam General Appearance: NAD, awake alert Eye: PERRL, anicteric sclera ENT: normocephalic atraumatic, no oropharyngeal lesions Neck: supple, symmetric, no JVD, no thyromegaly Heart: RRR, no murmur, no gallops Respiratory: CTAB, no wheezes, no rales Gastrointestinal: soft, non-tender, non-distended Extremities: no cyanosis, no clubbing, no edema Extremities - other findings: right leg cellulitis Skin: normal turgor, no lesions Neurological: no focal deficits Musculoskeletal: normal tone, normal strength Psychiatric: normal affect, normal behavior Hosp A/P (1) Sepsis Code(s): A41.9 - SEPSIS, UNSPECIFIED ORGANISM Status: Acute Qualifiers: Sepsis type: sepsis due to unspecified organism Hepatic coma status: unspecified Severe sepsis shock status: unspecified (2) Cellulitis of leg, right Code(s): L03.115 - CELLULITIS OF RIGHT LOWER LIMB Status: Acute (3) Gastroenteritis Code(s): K52.9 - NONINFECTIVE GASTROENTERITIS AND COLITIS, UNSPECIFIED Status : Resolved - Plan old records reviewed/req, plan discussed w/ family, continue antibiotics 03/01/19 continue vancomycin and rocephin add morphin for pain control follow culture
[2019-03-01] MEDS: Vancomycin 1.5 GRAM/300 ML BAG 1.5 GM in Premix Bag 1 BAG IVPB SCH ×2 (13:29→20:15)
[2019-03-02] MEDS: Vancomycin 1.5 GRAM/300 ML BAG 1.5 GM in Premix Bag 1 BAG IVPB SCH (05:26)
[2019-03-02] MEDS: Morphine 2 MG/ML SYRINGE SLOW IVP PRN ×2 (05:26→13:45)
[2019-03-02] MEDS: Famotidine 20 MG TAB PO SCH ×2 (08:56→21:28)
[2019-03-02] MEDS: HYDROcodone/Acetaminophen 5/325 mg Tablet PO PRN ×3 (08:56→21:48)
[2019-03-02] MEDS: cefTRIAXone\\ROCEPHIN 2 GM in Sodium Chloride 0.9% 100 ML IVPB SCH (09:02)
[2019-03-02] MEDS: Enoxaparin Sodium 40 MG/0.4 ML SYRINGE SC SCH (09:03)
--- NOTE | 2019-03-02 09:26 | PDOC.HOSPP ---
- Subjective Encounter Date: 03/02/19 Encounter Time: 08:35 Subjective: Patient seen and examined. No new complaints. No overnight events - Objective Vital Signs & Weight: Vital Signs (12 hours) Temp Pulse Resp BP Pulse Ox 03/02/19 07:30 98.6 F 73 16 126/66 98 03/02/19 05:45 98.6 F 87 16 123/75 95 03/02/19 00:00 98.7 F 70 18 132/78 99 Weight Weight 159 lb 11.2 oz I&O: 03/01/19 03/02/19 03/03/19 06:59 06:59 06:59 Intake Total 2220 Balance 2220 Result Diagrams: 03/01/19 04:30 03/01/19 04:30 Hospitalist ROS - Review of Systems ENT: denies: ear pain, ear discharge, nose pain, nose discharge, nose congestion , mouth pain, mouth swelling, throat pain, throat swelling, other Respiratory: denies: cough, dry, shortness of breath, hemoptysis, SOB with excertion, pleuritic pain, sputum, wheezing, other Cardiovascular: denies: chest pain, palpitations, orthopnea, paroxysmal noc. dyspnea, edema, light headedness, other Gastrointestinal: denies: nausea, vomiting, abdominal pain, diarrhea, constipation, melena, hematochezia, other Genitourinary: denies: dysuria, frequency, incontinence, hematuria, retention, other Musculoskeletal: denies: neck pain, shoulder pain, arm pain, back pain, hand pain, leg pain, foot pain, other Skin: denies: rash, lesions, mikey, bruising, other - Medication Medications: Active Medications Generic Name Dose Route Start Last Admin Trade Name Freq PRN Reason Stop Dose Admin Acetaminophen 650 mg 02/28/19 07:59 03/01/19 06:32 Tylenol PO 650 mg Q4H PRN Administration Headache/Fever/Mild Pain (1-3) Hydrocodone Bitart/Acetaminophen 1 tab 02/28/19 07:59 03/02/19 08:56 [place] 5/325 PO 1 tab Q4H PRN Administration Moderate Pain (4-6) Enoxaparin Sodium 40 mg 02/28/19 09:00 03/02/19 09:03 Lovenox SC Not Given 0900 YEISON Famotidine 20 mg 02/28/19 09:00 03/02/19 08:56 Pepcid PO 20 mg BID YEISON Administration Ceftriaxone Sodium 2 gm/ 100 mls @ 200 mls/hr 02/28/19 10:00 03/02/19 09:02 Sodium Chloride IVPB 100 mls 1000 YEISON Administration Vancomycin HCl 1.5 gm/ Device 300 mls @ 200 mls/hr 03/01/19 14:00 03/02/19 05 :26 IVPB 300 mls Q8HR YEISON Administration Ibuprofen 400 mg 02/28/19 07:59 02/28/19 18:29 Motrin PO 400 mg Q4H PRN Administration Fever > 101 Morphine Sulfate 2 mg 03/01/19 08:27 03/02/19 05:26 Morphine SLOW IVP 2 mg Q2H PRN Administration Severe Pain (7-10) Ondansetron HCl 4 mg 02/28/19 07:59 03/01/19 13:34 Zofran Odt PO 4 mg Q6H PRN Administration Nausea/Vomiting Ondansetron HCl 4 mg 02/28/19 07:59 02/28/19 18:51 Zofran IVP 4 mg Q6H PRN Administration Nausea/Vomiting - Exam General Appearance: NAD, awake alert Eye: PERRL, anicteric sclera ENT: normocephalic atraumatic, no oropharyngeal lesions Neck: supple, symmetric, no JVD Heart: RRR, no murmur, no gallops, no rubs Respiratory: CTAB, no wheezes, no rales, no ronchi Gastrointestinal: soft, non-tender, non-distended, normal bowel sounds Extremities: no cyanosis, no clubbing, no edema Extremities - other findings: cellulitis right leg improving Skin: normal turgor, no lesions Neurological: cranial nerve grossly intact, no focal deficits Musculoskeletal: normal tone, normal strength Psychiatric: normal affect, normal behavior Hosp A/P (1) Sepsis Code(s): A41.9 - SEPSIS, UNSPECIFIED ORGANISM Status: Resolved Qualifiers: Sepsis type: sepsis due to unspecified organism Hepatic coma status: unspecified Severe sepsis shock status: unspecified (2) Cellulitis of leg, right Code(s): L03.115 - CELLULITIS OF RIGHT LOWER LIMB Status: Acute (3) Gastroenteritis Code(s): K52.9 - NONINFECTIVE GASTROENTERITIS AND COLITIS, UNSPECIFIED Status : Resolved - Plan old records reviewed/req, continue antibiotics 03/01/19 continue vancomycin and rocephin add morphin for pain control follow culture 03/02/19 DC vancomycin continue rocephin expecting discharge tomorrow provide after treatment prophylactic treatment to prevent recurrent cellulitis Medication reviewed and continue to provide symptomatic care and supportive care
[2019-03-02] MEDS: Ondansetron ODT 4 MG TAB PO PRN (18:10)
[2019-03-03] MEDS: HYDROcodone/Acetaminophen 5/325 mg Tablet PO PRN ×3 (05:00→20:38)
[2019-03-03] MEDS: cefTRIAXone\\ROCEPHIN 2 GM in Sodium Chloride 0.9% 100 ML IVPB SCH (09:56)
[2019-03-03] MEDS: Famotidine 20 MG TAB PO SCH ×2 (09:56→20:40)
[2019-03-03] MEDS: Enoxaparin Sodium 40 MG/0.4 ML SYRINGE SC SCH (09:57)
--- NOTE | 2019-03-03 17:43 | PDOC.HOSPP ---
- Subjective Subjective: Seen and examined. Still with lower extremity cellulitis, though it has improved. Patient states that this is the sixth episode of cellulitis returning. Patient states that he has seen Dr. Williamson in the outpatient clinic and will follow up with him on discharge. Breathing comfortably on room air. Denies pain or fever. Discussed antibiotics and of the patient may need an extended course of oral antibiotics for suppression of chronic cellulitis. - Objective Vital Signs & Weight: Vital Signs (12 hours) Temp Pulse Resp BP Pulse Ox 03/03/19 10:00 97 03/03/19 07:07 98.5 F 81 18 96/55 L 97 Weight Weight 159 lb 11.2 oz I&O: 03/02/19 03/03/19 03/04/19 06:59 06:59 06:59 Intake Total 1000 Balance 1000 Result Diagrams: 03/01/19 04:30 03/01/19 04:30 Radiology Reviewed by me: Yes Hospitalist ROS - Review of Systems All other systems reviewed; all pertinent +/- noted in HPI/Subj - Medication Medications: Active Medications Generic Name Dose Route Start Last Admin Trade Name Freq PRN Reason Stop Dose Admin Acetaminophen 650 mg 02/28/19 07:59 03/01/19 06:32 Tylenol PO 650 mg Q4H PRN Administration Headache/Fever/Mild Pain (1-3) Hydrocodone Bitart/Acetaminophen 1 tab 02/28/19 07:59 03/03/19 12:23 [place] 5/325 PO 1 tab Q4H PRN Administration Moderate Pain (4-6) Enoxaparin Sodium 40 mg 02/28/19 09:00 03/03/19 09:57 Lovenox SC Not Given 0900 YEISON Famotidine 20 mg 02/28/19 09:00 03/03/19 09:56 Pepcid PO 20 mg BID YEISON Administration Ceftriaxone Sodium 2 gm/ 100 mls @ 200 mls/hr 02/28/19 10:00 03/03/19 09:56 Sodium Chloride IVPB 100 mls 1000 YEISON Administration Ibuprofen 400 mg 02/28/19 07:59 02/28/19 18:29 Motrin PO 400 mg Q4H PRN Administration Fever > 101 Morphine Sulfate 2 mg 03/01/19 08:27 03/02/19 13:45 Morphine SLOW IVP 2 mg Q2H PRN Administration Severe Pain (7-10) Ondansetron HCl 4 mg 02/28/19 07:59 03/02/19 18:10 Zofran Odt PO 4 mg Q6H PRN Administration Nausea/Vomiting Ondansetron HCl 4 mg 02/28/19 07:59 02/28/19 18:51 Zofran IVP 4 mg Q6H PRN Administration Nausea/Vomiting - Exam General Appearance: NAD, awake alert Eye: anicteric sclera ENT: normocephalic atraumatic, moist mucosa Neck: supple, symmetric, no lymphadenopathy Heart: RRR, no murmur, no gallops, no rubs, normal peripheral pulses Respiratory: CTAB, no wheezes, no rales, no ronchi, normal chest expansion Gastrointestinal: soft, non-tender, no bruit, no guarding, no rigidity Extremities: 1+ LE edema Skin - other findings: Cellulitis LE significantly improved per patient. roughly 5cm x 5cm area Hosp A/P (1) Sepsis Code(s): A41.9 - SEPSIS, UNSPECIFIED ORGANISM Status: Resolved Qualifiers: Sepsis type: sepsis due to unspecified organism Hepatic coma status: unspecified Severe sepsis shock status: unspecified (2) Cellulitis of leg, right Code(s): L03.115 - CELLULITIS OF RIGHT LOWER LIMB Status: Acute (3) Leg pain, right Code(s): M79.604 - PAIN IN RIGHT LEG Status: Acute (4) Lymphadenitis, acute Code(s): L04.9 - ACUTE LYMPHADENITIS, UNSPECIFIED Status: Acute - Plan Plan: medical unit IV antibiotics patient with multiple episodes of recurrent cellulitis of lower extremity may benefit from maintenance antibiotics afebrile since admission WBC count has normalized fever control with cooling measures and Tylenol if needed blood sugar control replace electrolytes as needed G.I. prophylaxis DVT prophylaxis
[2019-03-04] MEDS: HYDROcodone/Acetaminophen 5/325 mg Tablet PO PRN (05:34)
[2019-03-04] MEDS: Famotidine 20 MG TAB PO SCH (09:52)
[2019-03-04] MEDS: Enoxaparin Sodium 40 MG/0.4 ML SYRINGE SC SCH (09:52)
[2019-03-04] MEDS: cefTRIAXone\\ROCEPHIN 2 GM in Sodium Chloride 0.9% 100 ML IVPB SCH (09:52)
[2019-03-04 10:54] VITALS: BP 136/79; TEMP 98.2
--- NOTE | 2019-03-04 18:10 | DIS ---
DATE OF ADMISSION: 02/28/2019 DATE OF DISCHARGE: 03/04/2019 REASON FOR HOSPITALIZATION: Lower extremity cellulitis. SIGNIFICANT FINDINGS: The patient was found to have lower extremity cellulitis. PROCEDURES PERFORMED AND TREATMENTS RENDERED: The patient admitted to medical unit for close management. The patient was placed on IV antibiotics and blood cultures were obtained - please see full culture data for details. The patient with negative blood cultures from 02/28/2019. The patient had normalization of WBC count. The patient remained afebrile since 02/28/2019. The patient's cellulitis of the leg has resolved and he was recommended safe for discharge on oral antibiotic therapy. CONDITION ON DISCHARGE: Stable. SPECIFIC INSTRUCTIONS FOR THE PATIENT/FAMILY: 1. The patient recommended to take oral medications as directed. 2. The patient is recommended to follow up with primary care physician in the next 5 to 7 days. 3. The patient is recommended to follow up with Infectious Disease specialist in the next 2 to 4 weeks as he has had recurrent episodes of cellulitis. 4. The patient recommended to return to acute care hospital immediately if signs or symptoms return, worsen, or any other new symptoms occur. DISCHARGE MEDICATIONS: 1. Keflex 500 mg one tablet p.o. b.i.d. 2. Lactobacillus one tablet p.o. daily. 3. Ibuprofen 600 mg p.o. q.6 hours p.r.n. pain. 4. Terbinafine 200 mg p.o. daily. Greater than 32 minutes spent coordinating care and discharge process for this patient. Job ID: [id number]
== END 2019-03-04 11:54 | disposition home or self-care (01) | DRG 872 ==
LOC: ERS 04:16 → T4-A 06:42
PROVIDERS: ADMIT Internal Medicine; ATTEND Emergency Medicine
DX: A41.9 Sepsis, unspecified organism (principal); L03.115 Cellulitis of right lower limb; K52.9 Noninfective gastroenteritis and colitis, unspecified; L04.9 Acute lymphadenitis, unspecified
CPT/HCPCS: 36415; 36416; 71045; 74177; 80048; 80053; 80202; 83605; 85025; 87040; 93005; 96365; 96367; 96375; J0696; J1885; J2270; J2405; J2543; J3370; J3490; J7050; Q0162; Q9967